=== PATIENT | female | born 2000 | race Caucasian/White ===

== ENCOUNTER 2024-02-13 | Emergency (ER) | payer BC ==
[~2024-02-13] VITALS: Ht 172.7 cm; Wt 61.2 kg
[2024-02-13 00:16] VITALS: BP_SYST 111; PULSE 99; RESP 16; TEMP 99.4; O2SAT 97
[2024-02-13] MEDS: NACL 0.9% 1,000 ML IV ONE ×2 (00:56→01:59)
[2024-02-13 01:09] LABS: BILIRUBIN,URINE NEGATIVE (NEGATIVE); BLOOD, URINE 3+ (NEGATIVE); CLARITY/URINE CLEAR (CLEAR); COLOR,URINE YELLOW (YELLOW); GLUCOSE,URINE NEGATIVE (NEGATIVE); KETONES,URINE 1+ (NEGATIVE); LEUKOCYTE ESTERASE ,URINE 2+ (NEGATIVE); NITRITE, URINE NEGATIVE (NEGATIVE); PROTEIN URINE 2+ (NEGATIVE); UROBILINOGEN,URINE 0.2 (0.2-1.0)
[2024-02-13 01:22] LABS: BASOPHILS % (AUTO) 0.2 % (0.0-2.0); EOSINOPHILS # (AUTO) 0.1 K/uL (0.0-0.4); HEMATOCRIT 35.2 % (36-48); HEMOGLOBIN 11.8 g/dL (12.0-16.0); LYMPHOCYTES # (AUTO) 0.9 K/uL (1.0-5.5); LYMPHOCYTES % (AUTO) 7.5 % (20.5-51.5); MEAN CORPUSCULAR HEMOGLOBIN 28 pg (27-31); MEAN CORPUSCULAR HGB CONC 34 % (32-36); MEAN CORPUSCULAR VOLUME 82 fL (79.0-98.0); MONOCYTES % (AUTO) 7.9 % (1.7-9.3); NEUTROPHILS # (AUTO) 10.4 K/uL (1.8-7.7); NEUTROPHILS % (AUTO) 83.4 % (40.0-70.0); PLATELET COUNT (AUTO) 249 K/uL (130-430); WHITE BLOOD COUNT (AUTO) 12.4 K/uL (4.8-10.8)
[2024-02-13 01:34] LABS: RBC,URINE >100 /HPF (0-3); WBC,URINE >100 /HPF (0-3)
[2024-02-13 01:35] LABS: BACTERIA,URINE MANY /HPF (None Seen)
[2024-02-13 01:36] LABS: ALBUMIN 3.9 g/dL (3.4-4.8); BILIRUBIN,DIRECT 0.1 mg/dL (0.0-0.3); CREATININE 0.9 mg/dL (0.55-1.30); POTASSIUM 3.4 mmol/L (3.5-5.1); TOTAL BILIRUBIN 0.5 mg/dL (0.0-1.0); TOTAL PROTEIN, SERUM 7.9 g/dL (6.4-8.3)
[2024-02-13] MEDS: cefTRIAXone 1 GM IVPB PREMIX 50 ML IV ONE (01:53)
[2024-02-13] MEDS ORDERED: CIPR500T5 PO (02:35)
[2024-02-13 02:42] VITALS: BP_SYST 111; PULSE 99; RESP 16; TEMP 99.4; O2SAT 97
== END 2024-02-13 02:42 | disposition home or self-care (01) ==
LOC: SED
DX: N39.0 Urinary tract infection, site not specified (principal); R10.9 Unspecified abdominal pain; R11.2 Nausea with vomiting, unspecified; Z79.2 Long term (current) use of antibiotics
CPT/HCPCS: 99284; 96365; 96361; 80076; 80048; 81001; 85025; 87040; 87086; 36415; 81025; J0696; J7030; 81000; 81015